=== PATIENT | female | born 1990 | race Caucasian/White ===

== ENCOUNTER 2017-03-07 12:45 | Emergency (ER) | payer OTHER ==
[~2017-03-07] VITALS: Ht 170.2 cm; Wt 68.0 kg
[~2017-03-07 12:45] MED LIST: BACTRIM DS TAB1 EACH PO; BACTROBAN CREAM30 G1 TOP; CELEXA20 MG PO; CEPHALEXIN 500500 M1 PO; CEPHALEXIN 500500 M3 PO; LUBRICATING PL1 EACH OP; MACROBID 100 M100 M1 PO; MACROBID 100 M100 M2 PO; NEOMYC-POLYM-D3.5 GM OP; NOHOMEMEDICATIONS; ORTHO TRI-CYCL1 EACH PO; PHENAZOPYRIDIN200 M2 PO; PRENATAL; TRAZODONE HCL100 MG PO; UNICOMPLEX M TA1 TA1 PO; ZPAK PO
[2017-03-07] MEDS ORDERED: BUSPIRONE HCL10 MG PO (12:54)
[2017-03-07] MEDS ORDERED: CELEXA10 M1 PO (12:54)
[2017-03-07 13:37] LABS: INFLUENZA A ANTIGEN None Detected (None Detect); INFLUENZA B ANTIGEN None Detected (None Detect)
[2017-03-07] MEDS ORDERED: AUGMENTIN 875-1 EACH PO (13:50)
[2017-03-07 14:15] VITALS: BP 105/63
== END 2017-03-07 14:15 | disposition home or self-care (01) ==
LOC: M.ERS 12:45
PROVIDERS: Emergency Medicine Emergency Medical Services
DX: J32.9 Chronic sinusitis, unspecified (principal); Z87.440 Personal history of urinary (tract) infections

== ENCOUNTER 2018-01-18 11:02 | Emergency (ER) | payer OTHER ==
[~2018-01-18] VITALS: Ht 170.2 cm; Wt 74.8 kg
[~2018-01-18 11:02] MED LIST changes: +AUGMENTIN 875-1 EACH PO; +BUSPIRONE HCL10 MG PO; +CELEXA10 M1 PO
[2018-01-18] MEDS ORDERED: PENICILLIN V P500 MG PO (11:44)
[2018-01-18 11:58] VITALS: BP 113/69
== END 2018-01-18 11:59 | disposition home or self-care (01) ==
LOC: M.ERS 11:02
DX: J02.0 Streptococcal pharyngitis (principal)

== ENCOUNTER 2018-01-20 12:40 | Emergency (ER) | payer OTHER ==
[~2018-01-20] VITALS: Ht 170.2 cm; Wt 74.8 kg
[~2018-01-20 12:40] MED LIST changes: +PENICILLIN V P500 MG PO
[2018-01-20] MEDS ORDERED: CLEOCIN HCL150 MG PO (13:39)
[2018-01-20] MEDS ORDERED: PREDNISONE 20 M20 M1 PO (13:41)
[2018-01-20] MEDS ORDERED: DIFLUCAN150 MG PO (13:45)
[2018-01-20 14:38] VITALS: BP 100/61
== END 2018-01-20 14:42 | disposition home or self-care (01) ==
LOC: M.ERS 12:40
DX: J03.00 Acute streptococcal tonsillitis, unspecified (principal); F17.200 Nicotine dependence, unspecified, uncomplicated

== ENCOUNTER 2019-04-09 10:48 | Emergency (ER) | payer OTHER, MEDICAID ==
[~2019-04-09] VITALS: Ht 170 cm; Wt 84.4 kg
[~2019-04-09 10:48] MED LIST changes: +CLEOCIN HCL150 MG PO; +DIFLUCAN150 MG PO; +PREDNISONE 20 M20 M1 PO
[2019-04-09 11:52] LABS: INFLUENZA A ANTIGEN Negative (Negative); INFLUENZA B ANTIGEN Negative (Negative)
[2019-04-09] MEDS ORDERED: AMOXICILLIN 50500 MG PO (11:58)
[2019-04-09 12:10] VITALS: BP 111/70
== END 2019-04-09 12:11 | disposition home or self-care (01) ==
LOC: M.ERS 10:48
PROVIDERS: Physician Assistant
DX: J34.89 Other specified disorders of nose and nasal sinuses (principal); J02.9 Acute pharyngitis, unspecified; F17.210 Nicotine dependence, cigarettes, uncomplicated; Z86.19 Personal history of other infectious and parasitic diseases

== ENCOUNTER 2019-09-15 20:46 | Emergency (ER) | payer OTHER, MEDICAID ==
[~2019-09-15] VITALS: Ht 170.2 cm; Wt 83.9 kg
[~2019-09-15 20:46] MED LIST changes: +AMOXICILLIN 50500 MG PO
[2019-09-15 21:23] LABS: URINE BILIRUBIN NEGATIVE (Negative); URINE BLOOD NEGATIVE (Negative); URINE COLOR YELLOW; URINE GLUCOSE-RANDOM NEGATIVE (Negative); URINE KETONES NEGATIVE (Negative); URINE NITRITE-REFLEX NEGATIVE (Negative); URINE PROTEIN NEGATIVE (Negative); URINE SPECIFIC GRAVITY >= 1.030 (1.005-1.030)
[2019-09-15 21:24] LABS: URINE CLARITY SLIGHTLY CLOUDY; URINE LEUKOCYTES-REFLEX 2+ (Negative)
[2019-09-15 21:33] LABS: SQUAMOUS >10 Many /LPF (0-3)
[2019-09-15 21:34] LABS: BACTERIA-REFLEX >30 Many /HPF (None Seen); CASTS None Seen /LPF (None Seen); CRYSTALS None Seen /LPF (None Seen); MUCUS 4-6 Moderate strn/LPF (None Seen); URINE RBC 3-10 Few /HPF (0-2)
[2019-09-15] MEDS ORDERED: MACROBID 100 M100 M1 PO (21:54)
[2019-09-15] MEDS ORDERED: SUPRAX400 M1 PO (21:54)
[2019-09-15] MEDS ORDERED: DIFLUCAN150 MG PO (21:54)
[2019-09-15] MEDS ORDERED: AZITHROMYCIN 2250 MG PO (21:54)
[2019-09-15 22:00] VITALS: BP 131/77
== END 2019-09-15 22:00 | disposition home or self-care (01) ==
LOC: M.ERS 20:46
PROVIDERS: Family Medicine
DX: N39.0 Urinary tract infection, site not specified (principal); F17.210 Nicotine dependence, cigarettes, uncomplicated; Z87.440 Personal history of urinary (tract) infections